=== PATIENT | female | born 2000 | race Caucasian/White ===

== ENCOUNTER 2021-03-08 00:51 | Emergency (ER) | payer OTHER ==
[~2021-03-08] VITALS: Ht 167.6 cm; Wt 59.1 kg
[2021-03-08 03:33] LABS: APPEARANCE,URINE CLOUDY (CLEAR); BILIRUBIN,URINE NEGATIVE (NEGATIVE); GLUCOSE, URINE (UA) NEGATIVE (NEGATIVE); KETONES,URINE NEGATIVE (NEGATIVE); LEUKOCYTE ESTERASE ,URINE SMALL (NEGATIVE); NITRATE,URINE NEGATIVE (NEGATIVE); OCCULT BLOOD,URINE LARGE (NEGATIVE); PH,URINE 6.5 (5.0-8.0); PROTEIN,URINE SEE CONFIRM (NEGATIVE)
[2021-03-08 03:39] LABS: SULFOSALICYLIC ACID,URINE 4+ (Negative)
[2021-03-08] MEDS ORDERED: CEPHALEXIN MONOHYDRATE 500 MG CAPSULE PO ONE (03:45)
[2021-03-08 04:11] VITALS: BP 122/71
== END 2021-03-08 04:05 | disposition home or self-care (01) ==
LOC: EMS 00:52
DX: N39.0 Urinary tract infection, site not specified (principal)
CPT/HCPCS: 81002; 84703; 87086; 99283